=== PATIENT | female | born 1960 | race Caucasian/White ===

== ENCOUNTER → 2024-04-19 | Outpatient (CLI) | payer SELFPAY ==
--- NOTE | 2024-04-19 08:39 | RAD_ITS ---
EXAM: XR LUMBOSACRAL SPINE, 4 OR 5 VIEWS CLINICAL INDICATION: Segmental and somatic dysfunction of lumbar region. TECHNIQUE: Frontal, lateral and bilateral oblique views of the lumbar spine. COMPARISON: No relevant prior studies available. FINDINGS: VERTEBRAE: Multilevel facet arthrosis and endplate osteophytosis. Very subtle apex right curvature of the lumbar spine may be in part positional. Preserved vertebral body height. No fracture. No spondylolysis or spondylolisthesis. SACRUM/COCCYX: Transitional anatomy at the lumbosacral junction with apparent lumbarization of S1. DISC SPACES: Multilevel intervertebral disc height loss. VASCULATURE: Vascular calcifications. GASTROINTESTINAL TRACT: Normal as visualized. Included bowel gas pattern is non-obstructive. RAD/L/S Spine Min 4 Views IMPRESSION: 1. Multilevel degenerative changes. No acute osseous abnormalities. 2. Very subtle apex right curvature of the lumbar spine may be in part positional. Electronically Signed: Lowell Lang DO at 23:32 EDT ,
== END | disposition home or self-care (01) ==
PROVIDERS: PCP Nurse Practitioner Adult Health; Referring Provider Chiropractor Orthopedic; Visit Provider Chiropractor Orthopedic
DX: M99.03 Segmental and somatic dysfunction of lumbar region (principal); M54.50 Low back pain, unspecified
CPT/HCPCS: 72110

== ENCOUNTER 2024-06-18 08:46 | Emergency (ER) | payer OTHER, SELFPAY ==
[2024-06-18 08:47] VITALS: BP 116/68; PULSE 66; RESP 14; TEMP 36.2; O2SAT 98; BMI 30.9
--- NOTE | 2024-06-18 08:50 | EX.ED.DYSGE1 ---
HPI History of Present Illness Chief Complaint: Syncope Informant: patient and family Onset/Context/Timing Onset: Today Context: Sudden Onset Timing: Intermittent and Lasts (Approximately 5 minutes) Quality: Lightheaded Location: Generalized Worsened by: Nothing Relieved by: Nothing Narrative Narrative: Patient presents with left foot that occurred today. Patient states she felt like she was going to pass out. Patient states she broke out into a sweat. Patient states she felt lightheaded. Son states that she became pale. Patient states that her symptoms lasted approximately 5 minutes. Patient states she felt better after going to the bathroom. Patient admits to nausea and vomiting. Patient denies any diarrhea, melena, or hematochezia. Patient denies any chest pain or palpitations. Patient denies any shortness of breath or cough. Patient states she went to urgent care and had a COVID and flu test done there. Patient states that then she was referred to the emergency department. [facility] Medical History no medical history no medical history Home Medications ?Medication ?Instructions ?Recorded ?Last Taken ?Type sulfamethoxazole 800 1 tab PO BID #6 TABLETS 06/18/24 Unknown Rx mg-trimethoprim 160 mg tablet Allergy/AdvReac Type Severity Reaction Status Date / Time No Known Allergies Allergy Verified 06/18/24 08:47 Surgical History no surgical history no surgical history Social History (Updated 06/18/24 @ 09:[address] Adriano Joy, DO) Smoking Status: Never smoker substance use type: marijuana ROS ROS ED Constitutional Constitutional ED: Denies chills or fever(s) Eyes Eyes: Denies blurry vision or change in vision ENT ENT ED: Denies rhinorrhea or sore throat Cardiovascular Cardiovascular: Denies chest pain or palpitations Respiratory/Chest Respiratory/Chest: Denies cough or dyspnea Gastrointestinal Gastrointestinal: Reports nausea and vomiting Genitourinary Genitourinary ED: Denies dysuria or hematuria Musculoskeletal Musculoskeletal: Reports neck pain; Denies back pain Integumentary Denies abscess or rash Neurologic Neurologic: Denies headache(s) or weakness Allergic/Immunologic Allergic/Immunologic ED: Denies mouth swelling or urticaria EXAM Physical Exam Const Vital Signs: 06/18/24 08:47 06/18/24 08:47 06/18/24 10:27 Temperature 97.2 F L Temperature Source Temporal Pulse Rate 66 Pulse Rate [Lying] 68 Pulse Rate [Sitting (for 1 minute prior to obtaining)] 70 Pulse Rate [Standing (for 1 minute prior to obtaining)] 85 Respiratory Rate 14 Respiratory Pattern Normal Blood Pressure 116/68 Blood Pressure [Lying] 132/71 H Blood Pressure [Sitting (for 1 minute prior to obtaining)] 145/78 H Blood Pressure [Standing (for 1 minute prior to obtaining)] 133/71 H Blood Pressure Mean 84 Blood Pressure Mean [Lying] 91 Blood Pressure Mean [Sitting (for 1 minute prior to obtaining)] 100 Blood Pressure Mean [Standing (for 1 minute prior to obtaining)] 91 Pulse Ox 98 Oxygen Delivery Method Room Air 06/18/24 10:47 Temperature 98.9 F Temperature Source Temporal Pulse Rate 64 Pulse Rate [Lying] Pulse Rate [Sitting (for 1 minute prior to obtaining)] Pulse Rate [Standing (for 1 minute prior to obtaining)] Respiratory Rate 18 Respiratory Pattern Blood Pressure 118/76 Blood Pressure [Lying] Blood Pressure [Sitting (for 1 minute prior to obtaining)] Blood Pressure [Standing (for 1 minute prior to obtaining)] Blood Pressure Mean 90 Blood Pressure Mean [Lying] Blood Pressure Mean [Sitting (for 1 minute prior to obtaining)] Blood Pressure Mean [Standing (for 1 minute prior to obtaining)] Pulse Ox 99 Oxygen Delivery Method Room Air Positive well nourished and well developed General Appearance ED: well developed and NAD HEENT Reports moist mucous membranes Neck supple and no JVD Resp normal respiratory effort and clear to auscultation bilaterally Cardio regular rate and regular rhythm GI non-tender and non-distended Palpation: soft Neuro oriented x3, CN's II-XII intact bilaterally and no sensory deficits noted Sensorium / Orientation: alert Motor Exam: strength 5/5 throughout MDM MDM MDM Narrative Medical decision making narrative: Differential diagnosis includes cardiac dysrhythmia, cardiac ischemia, pneumonia, electrolyte abnormality, dehydration, and vasovagal syncope. EKG will be obtained to assess for cardiac dysrhythmia and cardiac ischemia. Chest x-ray will be obtained to assess for pneumonia and pneumothorax. Basic metabolic profile will be obtained to assess for electrolyte abnormality and renal function. CBC will be obtained to assess for leukocytosis and anemia. High-sensitivity troponin will be obtained to assess for cardiac ischemia. 2-hour repeat high-sensitivity troponin will be obtained to assess for ongoing cardiac ischemia. Patient has a Wells score of 0 and has no PE risk factors. I do not feel this is from a pulmonary embolism. Lab Data Attestation: I reviewed the patient's lab results. Lab results narrative: CBC was reviewed and was within normal limits. Basic metabolic profile was reviewed and was within normal limits. High-sensitivity troponin was reviewed and was normal at 3. 2-hour repeat high-sensitivity troponin was reviewed and was normal at 4. Urinalysis was reviewed. Leukocyte esterase was 25 with 10-25 white blood cells and 2+ bacteria. Labs: Laboratory Results - last 24 hr 06/18/24 06/18/24 06/18/24 09:10 10:29 11:24 WBC 7.8 RBC 4.31 Hgb 13.0 Hct 39.7 MCV 92.1 MCH 30.2 MCHC 32.7 RDW Std Deviation 46.1 H RDW Coeff of James 13.5 Plt Count 221 MPV 10.0 Immature Gran % (Auto) 0.500 Neut % (Auto) 74.4 H Lymph % (Auto) 17.5 L [place] % (Auto) 6.3 Eos % (Auto) 1.0 Baso % (Auto) 0.3 Absolute Neuts (auto) 5.8 Absolute Lymphs (auto) 1.37 Nucleated RBC % 0 Sodium 139 Potassium 3.8 Chloride 108 H Carbon Dioxide 26.0 Anion Gap 5 BUN 14 Creatinine 0.72 Estim Creat Clear Calc 76.74 Est GFR (MDRD) Af Amer 105 Est GFR (MDRD) Non-Af 87 BUN/Creatinine Ratio 19.4 Glucose 107 H Calcium 9.2 Troponin I High Sens 3 4 Urine Color Straw Urine Clarity Sl. Cloudy Urine pH 7.0 Ur Specific [place] 1.005 Urine Protein Negative Urine Glucose (UA) Normal Urine Ketones Negative Urine Occult Blood Negative Urine Nitrite Negative Urine Bilirubin Negative Urine Urobilinogen Normal Ur Leukocyte Esterase 25 H Urine RBC 0 SEEN Urine WBC 10-25 SEEN Ur Squamous Epith Cells 0 SEEN Urine Bacteria 2+ Urine Mucus 0 SEEN Radiography Chest X-Ray - ED: 2 View, Read by ED Physician, Read by Radiologist and No Acute Disease Diagnostic Testing: Clinical Impression(s) from Imaging Studies Chest X-Ray 06/18/24 09:05 IMPRESSION: Hyperinflation. The lungs are clear. Electronically Signed: Emmett Barker MD at 9:47 EDT , PA and lateral chest x-ray was obtained. There are 2 views. On my independent interpretation, lung yuen are clear. There is normal cardiac silhouette. Bony thorax is normal. There is no acute process noted. Radiologist also interpreted the x-ray and agrees. EKG Initial EKG: Attestation: I personally reviewed and interpreted this EKG as follows: Interpretation: Sinus Rhythm (With first-degree AV block with a rate of 63) and No Acute Injury Pattern Comments: EKG was obtained. On my independent interpretation, it showed a sinus rhythm with first-degree AV block with a rate of 63. [place] interval was prolonged at 212 ms. QRS interval was normal at 70 ms. QTc interval was normal at 440 ms. [place] was normal. There are no acute ST or T wave changes. Prior EKG tracings: not available for review Prior: No Prior Treatment and Re-Evaluation :: Orthostatic vital signs were obtained and were negative. Urine culture was ordered. Patient was given a dose of Bactrim here. Patient was given a prescription for Bactrim. Patient was instructed to drink plenty of fluids. Patient was instructed to follow-up with her primary care physician in 5 to 7 days. Patient understood and was agreeable with the plan. All questions were answered. Discharge Plan Triage Chief Complaint: Syncope ED Provider: Adriano Joy Dx/Rx/DC Orders Clinical Impression: Near syncope, Urinary tract infection Instructions: ED Near-Fainting, Uncertain Cause, ED Cystitis Female Adult Prescriptions: New sulfamethoxazole-trimethoprim 800-160 mg tablet 1 tab PO BID Qty: 6 0RF Primary Care Provider: Jessica Washington NP Referrals: Jessica Washington NP, [facility] [Primary Care Provider] - 3-5 Days Print Language: Sinhala Disposition Disposition: Home, Self Care
--- NOTE | 2024-06-18 08:51 | NURSING ---
NO OLD EKGS
--- NOTE | 2024-06-18 09:05 | EKG12_ITS ---
Test Reason : SYNCOPE Blood Pressure : / mmHG Vent. Rate : 063 BPM Atrial Rate : 063 BPM P-R Int : 212 ms QRS Dur : 070 ms QT Int : 430 ms P-R-T Axes : 069 055 040 degrees QTc Int : 440 ms Sinus rhythm with 1st degree A-V block Otherwise normal ECG Confirmed by LEOBARDO COOPER, DENISHA ([id number]), technical editor COLLEEN NIEVES ([id number]) on 06/21/2024 6:21:44 AM Referred By: NAOMI Confirmed By:DENISHA BOOHT MD
--- NOTE | 2024-06-18 09:05 | RAD_ITS ---
STUDY: X-RAY CHEST REASON FOR EXAM: Female, 64 years old. Syncope TECHNIQUE: PA and lateral views of the chest. COMPARISON: None. FINDINGS: There is hyperinflation of the lungs consistent with chronic obstructive lung disease (COPD). There is no demonstrated pleural abnormality. Normal size heart. Normal mediastinum and [place]. Normal visualized pulmonary arteries. Normal visualized aortic arch and descending thoracic aorta. There is demineralization of the osseous structures. Normal visualized ribs, clavicles, and shoulders. There is no demonstrated abnormality of the visualized soft tissue structures of the upper abdomen. RAD/Chest PA and Lateral IMPRESSION: Hyperinflation. The lungs are clear. Electronically Signed: Emmett Barker MD at 9:47 EDT ,
[2024-06-18 09:17] LABS: Absolute Lymphocyte Count 1.37 X10^3/uL (0.83-4.51); Absolute Neutrophil Count 5.8 X10^3/uL (2.0-7.7); Basophil# 0.02 X10^3/uL; Basophil% 0.3 % (0-1); Eosinophil# 0.08 X10^3/uL; Hematocrit 39.7 % (37-47); Lymphocyte # 1.37 X10^3/ul (0.83-4.51); Lymphocyte % 17.5 % (19-41); Mean Corp Hgb Conc 32.7 g/dL (32-36); Mean Corpuscular Hgb 30.2 pg (27.0-32.0); Mean Corpuscular Volume 92.1 fL (81-99); Monocyte# 0.49 X10^3/uL; Monocyte% 6.3 % (0-10); NRBC Flagged by Analyzer 0 % (0-5); Neutrophil # 5.83 X10^3/uL (2.7-7.7); Neutrophil % 74.4 % (47-70); Platelet Count 221 K/mm3 (150-450); RBC Distribution Width CV 13.5 % (11.6-14.6); RBC Distribution Width SD 46.1 fl (35.1-43.9); Red Blood Count 4.31 M/mm3 (4.2-5.4); White Blood Count 7.8 K/mm3 (4.4-11.0)
[2024-06-18 09:37] LABS: Anion Gap 5 (5-15); BUN 14 mg/dL (7-18); BUN/Creat Ratio 19.4 RATIO (10-20); Calcium,Total 9.2 mg/dL (8.5-10.1); Chloride 108 mmol/L (98-107); Creatinine, Serum 0.72 mg/dL (0.55-1.02); EST Glomerular Filtration Rate 87 mL/min (>60); Est Glom Filt Rate - Afr Amer 105 mL/min (>60); Estimated Creatinine Clearance 76.74 ml/min; Glucose 107 mg/dL (74-106); Potassium 3.8 mmol/L (3.5-5.1); Sodium Level 139 mmol/L (136-145); Troponin-I HS (w/2H Reflex) 3 pg/mL (3.0-54.0)
[2024-06-18 10:27] VITALS: BP 132/71; BP 133/71; BP 145/78; PULSE 68; PULSE 70; PULSE 85
[2024-06-18 10:37] LABS: Mucous, Urine 0 SEEN /hpf (<or=2+); Red Blood Cells-Urine 0 SEEN /hpf (0-5); Squamous Epithelial Cells - UA 0 SEEN /hpf (5-10)
[2024-06-18 10:40] LABS: Color, Urine Straw (Yellow); Glucose, Dipstick Normal (Normal); Ketone-Dipstick Negative (Negative); Leukocyte Esterase-Dipstick 25 /ul (Negative); Nitrite-Dipstick Negative (Negative); Occult Blood-Urine Negative /ul (Negative); Protein-Dipstick Negative (Negative); Specific Gravity, Urine 1.005 (1.002-1.030); Urine Bilirubin Dipstick Negative (Negative); Urine Clarity Sl. Cloudy (Clear); Urine Urobilinogen Normal (Normal)
[2024-06-18 10:47] VITALS: BP 118/76; PULSE 64; RESP 18; TEMP 37.2; O2SAT 99
[2024-06-18 10:50] LABS: White Blood Cells 10-25 SEEN /hpf (0-5)
[2024-06-18 10:51] LABS: Bacteria 2+ /hpf (None Seen)
[2024-06-18 11:16] LABS: Reflex Troponin-HS? (from REC) Y
[2024-06-18 11:45] LABS: Troponin-I HS 4 pg/mL (3.0-54.0)
[2024-06-18 12:17] VITALS: BP 128/81; PULSE 71; RESP 16; O2SAT 98
[2024-06-18] MEDS: Smz/Tmp Ds Tablet 1 TABLET PO (12:22)
== END 2024-06-18 12:23 | disposition home or self-care (01) ==
PROVIDERS: Emergency Provider Emergency Medicine; PCP Nurse Practitioner Adult Health; Visit Provider Emergency Medicine
DX: R55 Syncope and collapse (principal); N39.0 Urinary tract infection, site not specified; R11.2 Nausea with vomiting, unspecified; M54.2 Cervicalgia
CPT/HCPCS: 71046; 80048; 81001; 84484; 85025; 93005; 99285; A4216